=== PATIENT | male | born 1970 | race Caucasian/White ===

== ENCOUNTER 2021-09-29 14:17 | Observation (INO) ==
[2021-09-29] MEDS ORDERED: Ketorolac 30 MG/ML VIAL IVP ONE (14:39)
[2021-09-29] MEDS ORDERED: Ondansetron 4 MG/2 ML VIAL IVP ONE (14:39)
[2021-09-29] MEDS ORDERED: Isovue-370 500 ML BOTTLE IVP ONE (14:39)
[2021-09-29] MEDS ORDERED: 0.9 % Sodium Chloride 1,000 ML IVC ONE (14:39)
[2021-09-29 15:29] LABS: Basophils # 0.1 K/mcL (0.0-0.2); Basophils % 0.5 %; Eosinophils # 0.1 K/mcL (0.0-0.6); Eosinophils % 1.1 %; Hematocrit 44.4 % (37.5-50.1); Hemoglobin 15.5 g/dL (12.9-16.9); Immature Granulocytes % 0.6 % (0-4); Lymphocytes # 2.2 K/mcL (0.6-4.6); Lymphocytes % 22.5 %; Mean Corpuscular HGB Conc 34.9 g/dL (31.6-35.5); Mean Corpuscular Volume 94.5 fL (83.0-100.0); Mean Platelet Volume 10.7 fL (9.4-12.4); Monocytes # 0.7 K/mcL (0.0-1.3); Monocytes % 6.8 %; Neutrophils # 6.6 K/mcL (1.6-8.9); Platelet Count 219 K/mcL (140-400); Red Cell Distribution Width 11.9 % (11.5-14.5); Segmented Neutrophils % 68.5 %; White Blood Count 9.6 K/mcL (4.3-11.1)
[2021-09-29 15:29] LABS: Bilirubin,Urine Negative (Negative); Blood,Urine Negative (Negative); Clarity,Urine Clear (Clear); Color,Urine Yellow (Yellow); Glucose,Urine (UA) Normal (Normal); Ketones,Urine 10 mg/dL (Negative); Leukocyte Esterase,Urine Negative (Negative); Nitrite,Urine Negative (Negative); Protein,Urine Trace mg/dL (Neg-Trace)
[2021-09-29 15:36] LABS: INR 1.1; Prothrombin Time 12.5 Seconds (9.4-12.1)
[2021-09-29 15:39] LABS: Activated Partial Thrombo Time 33.7 Seconds (26.0-36.0)
[2021-09-29 16:04] LABS: Alanine Aminotransferase 24 Units/L (7-52); Albumin 4.4 g/dL (3.5-5.7); Albumin/Globulin Ratio 1.4 (1.1-2.2); Alkaline Phosphatase 81 Units/L (34-104); Amylase 42 Units/L (29-103); Aspartate Amino Transferase 20 Units/L (13-39); BUN/Creatinine Ratio 11 (6-26); Bilirubin,Direct 0.1 mg/dL (0.0-0.2); Bilirubin,Indirect 0.5 mg/dL (0.0-1.0); Bilirubin,Total 0.6 mg/dL (0.3-1.0); Blood Urea Nitrogen 10 mg/dL (6-20); Calcium 9.2 mg/dL (8.6-10.3); Carbon Dioxide 26 mEq/L (23-29); Chloride 102 mEq/L (98-107); Globulin 3.1 g/dL (2.4-3.5); Glucose 96 mg/dL (70-105); Lipase 10 Units/L (11-82); Osmolality,Calculated 283 (280-300); Potassium 3.9 mEq/L (3.5-5.1); Sodium 137 mEq/L (136-145); Total Protein 7.5 g/dL (6.4-8.9); Troponin I < 0.03 ng/mL (< 0.04); eGFR For African Americans > 60 (> 60); eGFR For Non-African Americans > 60 (> 60)
[2021-09-29] MEDS ORDERED: Piperacillin/Tazobactam 3.375 GM in 0.9 % Sodium Chloride Mini Bag 100 ML IVPB ONE (18:49)
[2021-09-29] MEDS ORDERED: 0.9 % Sodium Chloride 1,000 ML IVC SCH (19:00)
[2021-09-29] MEDS ORDERED: *HR* FentaNYL (PF) 100 MCG/2 ML VIAL ONE (19:04)
[2021-09-29] MEDS ORDERED: *HR* Midazolam HCl 2 MG/2 ML VIAL ONE (19:04)
[2021-09-29] MEDS ORDERED: *HR* Propofol 200 MG/20 ML VIAL IVP ONE (19:04)
[2021-09-29] MEDS ORDERED: Ondansetron 4 MG/2 ML VIAL ONE (19:05)
[2021-09-29] MEDS ORDERED: *HR* Rocuronium Bromide 50 MG/5 ML VIAL ONE (19:05)
[2021-09-29] MEDS ORDERED: *HR* Succinylcholine 200 MG/10 ML VIAL IVP ONE (19:05)
[2021-09-29] MEDS ORDERED: Lidocaine HCL 4 ML Topical Solution (Laryng-O-Jet Kit Sterile Pak) TP ONE (19:05)
[2021-09-29] MEDS ORDERED: Lidocaine -MPF 2% 2 ML VIAL ONE (19:05)
[2021-09-29] MEDS ORDERED: *HR* HYDROmorphone PF 0.5 MG/0.5 ML SYRINGE IVP PRN (19:32)
[2021-09-29] MEDS ORDERED: Acetaminophen IV 1,000 MG/100 ML BAG IVPB ONE (19:50)
[2021-09-29] MEDS ORDERED: *HR* HYDROMORPHONE 2 MG/ML VIAL ONE (19:54)
[2021-09-29] MEDS ORDERED: Ketorolac 30 MG/ML VIAL ONE (20:35)
[2021-09-29] MEDS ORDERED: *HR* OxyCODONE/APAP 5/325 TABLET PO PRN (21:38)
[2021-09-29] MEDS ORDERED: Ondansetron 4 MG/2 ML VIAL IVP PRN (21:38)
[2021-09-30] MEDS: Piperacillin/Tazobactam 3.375 GM in 0.9 % Sodium Chloride Mini Bag 100 ML IVPB SCH ×2 (02:16→07:46)
[2021-09-30] MEDS: Ketorolac 30 MG/ML VIAL IVP SCH ×2 (02:16→06:24)
[2021-09-30 03:50] VITALS: TEMP 98.1
[2021-09-30 07:45] VITALS: BP 117/69; PULSE 60; O2SAT 98
[2021-09-30] MEDS ORDERED: lisinopriL 20 MG TABLET PO SCH (09:00)
== END 2021-09-30 11:07 | disposition home or self-care (01) ==
LOC: EMEROOARM 14:17 → 3ANU 14:17
PROVIDERS: ADMIT Surgery; ATTEND Surgery